=== PATIENT | male | born 1980 | race Caucasian/White ===

== ENCOUNTER 2020-01-19 08:39 | Day surgery (SDC) | payer SELFPAY ==
[2020-01-18 15:14] VITALS: BMI 23.7
[2020-01-19] VITALS (11 sets, daily range): BP systolic 125–148; BP diastolic 73–93; PULSE 62–79; RESP 12–21; TEMP 36.2–36.7; O2SAT 97–100
--- NOTE | 2020-01-19 | SCC_ITS ---
Procedure Done: Open reduction internal fixation left lateral malleolus 20.6 seconds of fluoroscopic guidance, for a cumulative dose of 0.38 mGy, was provided to Dr. Velez by the radiology department. C-arm images of the LEFT ankle were saved for the patient's permanent record. [facility]
[2020-01-19] MEDS: sodium chloride 0.9% 1,000 ML 30 ML IV (09:19)
--- NOTE | 2020-01-19 09:24 | ANES.PREANE2 ---
Pre-Anesthetic Assessment Pre-Anesthetic Assessment: Height/Weight: Height 1.85 m Weight 81.647 kg Temp Pulse Resp BP Pulse Ox 98.0 F 72 18 148/85 98 01/19/20 09:01 01/19/20 09:01 01/19/20 09:01 01/19/20 09:01 01/19/20 09:01 Preop Diagnosis: Left bimalleolar ankle fracture Proposed Procedure: Operation Date: 01/19/20 10:40 Proposed Procedures p ORIF Ankle Bimalleolar fracture 05396 S82.842A(Left) - Jaylen Velez MD Familial anesthetic complications: NOne Was Beta Humza taken within 24 hours: N/A Last intake: Intake Last Liquid Date 01/18/20 Last Liquid Time 23:00 Last Solid Date 01/18/20 Last Solid Time 23:00 Social: Social History: Tobacco and No alcohol Packs per day: 0.5 ppd Exam: Pre-Anes Outpt Exam: alert, oriented x 3, clear to auscultation bilaterally and regular rate & rhythm Airway: Cervical ROM: WNL MP: 3 Dentition: Chipped Additional comments: poor dentition Pulmonary: Pulmonary: None reported CV/HEM: CV/HEM: None reported : : None reported Hepatic: Hepatic: None reported GI: GI: None reported Metabolic: Metabolic: None reported Musc/skel: Musc/skel: None reported Anesthetic Plan: ASA status: 2 Anesthesia: General and Regional (specify below) Risk of > 500 ml blood loss (7ml/kg in children): No Meds/Allergies Current Medications: Current Medications Generic Name Dose Route Start Last Admin Trade Name Freq PRN Reason Stop Dose Admin Sodium Chloride 1,000 mls @ 30 ml s/hr 01/19/20 09:00 01/19/20 09:19 Sodium Chloride 0.9% IV 01/20/20 08:59 30 mls/hr .Q24H NATI Administration PFSH Anesthesia PFSH: Social History Smoking and tobacco status: current every day smoker Alcohol intake: never Data Anesthesia Cardiac Studies: No Data to Display
[2020-01-19] MEDS: midazolam 1 mg/mL INJ 2 mL 2 MG IVP (09:34)
[2020-01-19] MEDS: fentaNYL 50 mcg/mL INJ 2mL 100 MCG IVP (09:36)
--- NOTE | 2020-01-19 10:25 | ANES.PROC ---
Anesthesia Procedures Procedure/Date: 01/19/20 Nerve Block ^: Nerve Block 1: Main Anesthesia: general anesthesia Time Out Performed: Yes Consent: requested by attending/covering physician, from patient, risks and benefits reviewed and patient agrees to proceed Nerve block location: popliteal (L) Anesthesia monitors applied: pulse oximetry, BP cuff and oxygen Nerve block position: semi sitting Anesthetic Used: ropivicaine 0.5% and with decadron (3) Amount of anesthesia used (mL): 30 Ultrasound used to: recognize landmarks Nerve Stimulator Used?: No Interscalene/Femoral BLK: 4 stimuplex 21 g needle used for position and inplane approach and visualize local anesthetic spread Injection: neg aspiration of heme and paresthesia +/- Patient Tolerated Procedure: no complications Complications: none Nerve Block 2: Main Anesthesia: general anesthesia Time Out Performed: Yes Consent: requested by attending/covering physician, from patient, risks and benefits reviewed and patient agrees to proceed Nerve block location: adductor canal (L) Anesthesia monitors applied: pulse oximetry, BP cuff and oxygen Nerve block position: supine Anesthetic Used: ropivicaine 0.5% and with decadron (1 mg) Amount of anesthesia used (mL): 10 Ultrasound used to: recognize landmarks Interscalene/Femoral BLK: 4 stimuplex 21 g needle used for position and inplane approach, visualize local anesthetic spread and no vascular puncture identified Injection: neg aspiration of heme Patient Tolerated Procedure: well Complications: none
--- NOTE | 2020-01-19 11:13 | XR_ITS ---
WS: [id number] C-ARM RADIOGRAPHS LEFT ANKLE; 3 IMAGES HISTORY: OR PICS COMPARISON: 01/15/2020 Intraoperative fixation distal fibular fracture. Fracture in good position and alignment. XR/XR ankle LT 2V [id number] IMPRESSION: Intraoperative fixation distal fibular fracture in good alignment.
--- NOTE | 2020-01-19 11:18 | SUR.PHASEI ---
1117 PATIENT TO PACU AT THIS TIME FROM OR. RR EVEN AND UNLABORED. 100% ON RA. DRESSING TO LEFT ANKLE WITH WALKING BOOT IN PLACE. CAP REFILL INTACT TO LEFT TOES.
--- NOTE | 2020-01-19 11:18 | PM.OP ---
Operative Report Date of procedure: January 19, 2020 Pre-op Diagnosis: Left bimalleolar ankle fracture Post-op diagnosis: same Post-op Findings: The patient had the previously described displaced spiral fracture of the left lateral malleolus and a small posterior malleolar fracture Procedure Done: Open reduction internal fixation left lateral malleolus Implants: Variax distal tibial plate Pathology: none sent Surgeon: Jaylen Velez Anesthesia: General Estimated blood loss (mL): 10 Tourniquet time (min): 36 Complications: None Findings: The patient had the previously described displaced spiral fracture of the left lateral malleolus and a small posterior malleolar fracture Disposition: PACU Brief History: The patient sustained a lateral and posterior malleolar fracture when he slipped in mud with a displacement of the fibula and equivocal widening of the medial tibiotalar clear space. Open reduction internal fixation was chosen to better align the talus in the mortise and minimize risk of a future pain and degenerative change Procedure: The patient was taken to the operating room after he was given a popliteal and abductor canal block and given a general anesthesia, he was given 2 g of Ancef and a general anesthesia. He was prepped and draped in the supine position with a tourniquet on the left thigh. A timeout was performed. A 6 cm long decision was made beginning from the tip of the lateral malleolus proximally. Dissection was carried down full-thickness through to the distal fibula. The periosteum was elevated laterally and the fracture mobilized with a [place]. Reduction clamp was used to bring the distal fibular fragment out to length and I reduced it. The bariatrics plate was placed over the distal fibula. It was fixed with provisionally with 1 nonlocking screw in the proximal plate and a additional nonlocking screw and the distal plate providing compression of the plate against the bone. Additional locking screws were placed distally and a mixture of locking and nonlocking screws approximately stabilizing the plate to bone. Intraoperative images were obtained showing satisfactory position of the hardware. The wound was irrigated with saline. Deep tissues were closed with 2-0 Vicryl. The skin was closed with skin jolie. Sterile dressings were applied. Radiographs showed alignment of the talus in the mortise. The posterior malleolar fragment was not seen to be displaced. Talus was a stable to lateral displacing force in the mortise. Patient was placed in a postop boot, extubated, and taken recovery room in stable condition.
--- NOTE | 2020-01-19 11:45 | SUR.PHASEI ---
1141 PATIENT TO OPS AT THIS TIME. PAIN 6/10, WANTING A PAIN PILL SO HE CAN GO HOME. BOOT IN PLACE TO LEFT ANKLE, TOLERATING WELL.
[2020-01-19] MEDS: oxyCODONE 5 mg IR Tab/Cap PO (12:00)
--- NOTE | 2020-01-19 17:40 | PC.SOCIAL ---
followed up with mother after receiving order for crutches to ensure these were obtained. Mother indicates he has crutches and a walker no further needs
== END 2020-01-19 12:57 | disposition home or self-care (01) ==
PROVIDERS: Visit Provider Orthopaedic Surgery
PROC: (CPT 27792; principal; 2020-01-19 10:20)
DX: S82.842A Displaced bimalleolar fracture of left lower leg, initial encounter for closed fracture (principal); X50.1XXA Overexertion from prolonged static or awkward postures, initial encounter; F17.210 Nicotine dependence, cigarettes, uncomplicated
CPT/HCPCS: 27792; 12345; 73600; 76000; 96374; C1713; J0690; J1100; J1580; J2250; J2405; J2704; J2795; J3010; J3490; J7030

== ENCOUNTER 2020-04-27 12:14 | Emergency (ER) | payer SELFPAY ==
[2020-04-27] VITALS (11 sets, daily range): BP systolic 115–157; BP diastolic 70–89; PULSE 82–120; RESP 16–20; TEMP 37.1; O2SAT 95–97; BMI 25.0
[2020-04-27] MEDS: acetaminophen 500 mg Tablet 1000 MG PO (13:12)
[2020-04-27] MEDS: ondansetron 2 mg/ML SDV 2 mL 4 MG IVP (13:13)
[2020-04-27] MEDS: sodium chloride 0.9% 1,000 ML 999 ML IV ×2 (13:13→16:06)
[2020-04-27] MEDS: HYDROmorphone 1 mg/mL INJ 1 mL 0.5 MG IVP (13:13)
--- NOTE | 2020-04-27 13:28 | CTR_ITS ---
PROCEDURE INFORMATION: Exam: CT Right Lower Extremity With Contrast; Thigh Exam date and time: 04/27/2020 1:36 PM Age: 39 years old Clinical indication: Hip and thigh; Patient HX: Pain/redness and swelling to right lateral hip/femur area with no previous trauma or injury; Additional info: Swelling, redness, pain right lateral proximal femur TECHNIQUE: Imaging protocol: CT of the Right lower extremity with intravenous contrast was performed. Exam focused on the thigh. Radiation optimization: All CT scans at this facility use at least one of these dose optimization techniques: automated exposure control; mA and/or kV adjustment per patient size (includes targeted exams where dose is matched to clinical indication); or iterative reconstruction. Contrast material: OMNIPAQUE 300; Contrast volume: 95 ml; Contrast route: INTRAVENOUS (IV); COMPARISON: No relevant prior studies available. RADIATION DOSE METRICS: Total DLP (mGy-cm): 1261.12 FINDINGS: Bones/joints: Normal. No acute fracture or dislocation. Soft tissues: There is peripherally enhancing fluid with minimal internal complexity surrounding at the anterior, lateral, and posterolateral musculature of the right hip and thigh extending along the fascial planes. There is fluid stranding in the overlying subcutaneous soft tissues. The right gluteus medius muscle is enlarged and heterogeneous. CT/CT femur RT w con [id number] IMPRESSION: 1. The right gluteus medius muscle is enlarged and heterogeneous. Differential includes myositis, infection, and contusion. 2. There is peripherally enhancing fluid with some internal complexity surrounding the anterior, lateral, and posterolateral musculature of the right hip and thigh extending into the fascial planes. Differential includes infection/abscess and hematoma. Radiation Dose CTDIVOL = (mGy): DLP = 1261.12 (mGy-cm)
[2020-04-27 13:34] LABS: Basophils # 0.1 10^3/uL (0.0-0.1); Basophils % 0.4 %; Hematocrit 38.7 % (42.0-52.0); Hemoglobin 12.7 g/dL (11.7-16.6); Lymphocytes # 0.4 10^3/uL (0.8-4.8); Lymphocytes % 2.5 %; Mean Corpuscular HGB Conc 32.8 g/dL (30.0-36.0); Mean Corpuscular Hemoglobin 28.3 pg (28.0-34.0); Mean Corpuscular Volume 86.4 fL (80-94); Mean Platelet Volume 11.4 fL (7.4-10.4); Monocytes % 12.4 %; Neutrophils # 13.42 10^3/uL (1.8-7.7); Neutrophils % 84.1 %; Nucleated Red Blood Cells % 0 %; Platelet Count 257 10^3/cmm (130-400); Red Blood Count 4.48 10^6/uL (4.1-5.3); Red Cell Distribution Width 13.2 % (12.1-15.1)
[2020-04-27] MEDS: iohexol 300 mg/mL 100 mL Btl IV (13:54)
[2020-04-27 14:01] LABS: Procalcitonin 8.27 ng/mL (0-0.5)
[2020-04-27] MEDS: ketorolac 30 mg/mL INJ 15 MG IVP (14:01)
--- NOTE | 2020-04-27 14:04 | ED_ITS ---
HPI - General Adult General: Chief complaint: General Medical Stated complaint: infection/sent by doctor Time Seen by Provider: 04/27/20 12:29 History of Present Illness: HPI narrative: This patient is a 39-year-old male presents today with an infection in his right leg. He started having pain in his right hip area and buttock about 4 days ago. He has been seen in [facility] a few times for this and initially was thought to have a pinched nerve in his back causing the pain. He has since developed redness and swelling over the right hip and buttock. He was sent here today for evaluation for sepsis and infection. He has been on Bactrim for a couple of days but the symptoms are getting worse. He was sent today but no paperwork or imaging was sent with him. I did obtain records from [facility] and he did have a CT done on the of the abdomen and pelvis. This showed some splenomegaly and enlarged retroperitoneal lymph nodes but the hip joints were noted as normal. He had labs done on the as well as yesterday. The labs from yesterday show a white count of 16.4, CO2 of 18 and a glucose of 192. He also had elevated alk phos at 220. Labs from today are ordered as well. He denied drug use but has fresh track bailey and did eventually admit to IV drug use including Dilaudid. He denies vomiting or fever. He has had chills. He feels terrible. Onset (ago): day(s) (4) Location: right and lower extremity Severity: severe Quality: stabbing and sharp Pain Consistency: constant Relieving factors: none Exacerbating factors: movement Associated symptoms: Reports diaphoresis, fevers/chills and malaise; Deny chest pain Review of Systems General: Reports: 10 or more systems reviewed and unremarkable except in HPI and below Const: Reports: malaise and diaphoresis Card: Denies: chest pain Musc: Reports: extremity pain and extremity swelling Skin/Breast: Reports: erythema, skin pain, skin tenderness and skin swelling PFS ED PFSH: Social History Smoking and tobacco status: current every day smoker Alcohol intake: never Physical Exam Const: COMMON NORMALS: no acute distress, patient oriented x3, no limitations and alert GENERAL APPEARANCE: cooperative and comfortable HENMT: HEAD & SCALP: normal to inspection FACE & SINUS: normal facial exam Eye: GENERAL EYE: appearance normal, both eyes and all related structures Neck/C-Spine: COMMON NORMALS: supple, no meningeal signs and no JVD Chest: COMMONS NORMALS: normal inspection of the chest Resp: COMMON NORMALS: normal respiratory effort, No use of accessory muscles and clear to auscultation bilaterally EFFORT & INSPECTION: Yes tachypneic AUSCULTATION: clear to auscultation bilaterally Cardio: COMMON NORMALS: no JVD, regular rhythm and No murmurs present (Cardio) RATE: tachycardic RHYTHM: regular rhythm GI: COMMON NORMALS: Normal to inspection, nondistended, normoactive bowel sounds present, Soft to palpation and non-tender INSPECTION: Yes normal to inspection AUSCULTATION: Yes normoactive bowel sounds PALPATION: Yes Soft to palpation Back/Pelvis: COMMON NORMALS: thoracic and lumbar spine normal to inspection Extremity: GENERAL: Yes normal exam except as noted RIGHT LOWER EXTREMITY: Yes upper leg (Large area of redness, swelling, tenderness over the lateral aspect of the proximal thigh and extending slightly onto the buttock. This is in the general area of the hip joint but not directly over it. Severe pain with movement or palpation) Neuro: COMMON NORMALS: patient oriented x3, moves all extremities, no focal motor deficits and no sensory deficits noted SENSORIUM/ORIENTATION: Yes alert MENINGEAL SIGNS: Yes no meningeal signs Psych: COMMON NORMALS: mental status grossly normal, cooperative and normal affect Skin: COMMON NORMALS: no rashes or lesions noted and turgor normal GENERAL SKIN EXAM: no rashes or lesions noted and turgor normal Course ED course: I spoke with Dr. Whitney, general surgery at [facility]. She would like the patient to come through the ED however the ED is on forced open and not taking transfers. She then felt to be appropriate for the hospitalist to admit and she will consult as orthopedics might be involved as well as infectious disease and other medical specialties. The transfer center will call me back with an accepting hospitalist. Also concerned about bed availability given the status of their ER. [facility] called back and said that their hospitalist would not take the patient. They felt like the patient would need either ICU or to go to the ER in both of those areas are closed. Thus, I called [facility] and they said they did have ICU beds so Dr. Ovalle called me back but did not feel that the patient was appropriate for ICU level care. She said she was available if the patient went to stepdown and then worsened. I am now waiting for the hospitalist to call me back to see if they can accept him to a stepdown bed. The patient has been accepted to the ER at [facility] by Dr. Whiting. EMS is here to transport him. Vital signs are still stable. Blood pressure is 133/73. His pain is adequately controlled. Consultations: Consultation #1: The radiologist called with the CT findings. He has significant complex fluid around the anterior lateral and posterior lateral muscle groups in the hip and thigh. There is no evidence of involvement of the joint. There is enlargement of the gluteus medius muscle on the right with some heterogeneity. The fluid extends into the fascial planes. Asked the radiologist if she thought it might be necrotizing fasciitis and her answer was not yet . Time: 14:40 Consultation #2: Spoke with Dr. Ferreira regarding the patient. We reviewed the CT together. He would like to get an MRI with contrast because is not clear if this is infectious, involving the hip joint or myositis. He recommended vancomycin and Zosyn which have already been started. The patient CK is elevated over 5000. MRI is ordered and will have to call the tech from home. 15:10 Consultation #3: Dr. Andrew called back and said he had done some further research and reviewed the CT again and is concerned about necrotizing myositis. He feels that because it is in a deep muscle that orthopedics should be involved. I called and spoke to Dr. Magaña who will review the CT and call me back. Time: 15:43 Additional Consultation(s): Dr. Magaña called back and said he felt like the patient should be transferred out to higher level of care due to the possibility of necrotizing infection. The patient had no preference as to where he goes and I am trying [facility] first. Vital Signs: Vital signs: Vital Signs Temperature 98.7 F 04/27/20 12:24 Pulse Rate 84 04/27/20 21:31 Respiratory Rate 16 04/27/20 21:31 Blood Pressure 133/73 04/27/20 21:31 Pulse Oximetry 96 04/27/20 21:31 MDM - General Adult MDM Narrative: Medical decision making narrative: Cellulitis, septic joint, necrotizing fasciitis or the top and most concerning differential diagnoses. Zosyn, vancomycin. Pain control. Fluids. Surgical consult. Lab Data: Labs: Lab Results 04/27/20 04/27/20 04/27/20 Range/Units 13:17 13:17 13:17 WBC 16.0 H (4.0-10.0) 10^3/ uL RBC 4.48 (4.1-5.3) 10^6/u L Hgb 12.7 (11.7-16.6) g/dL Hct 38.7 L (42.0-52.0) % MCV 86.4 (80-94) fL MCH 28.3 (28.0-34.0) pg MCHC 32.8 (30.0-36.0) g/dL RDW 13.2 (12.1-15.1) % Plt Count 257 (130-400) 10^3/c mm MPV 11.4 H (7.4-10.4) fL Neut % (Auto) 84.1 % Lymph % (Auto) 2.5 % [place] % (Auto) 12.4 % Eos % (Auto) 0.0 % Baso % (Auto) 0.4 % Neut # (Auto) 13.42 H (1.8-7.7) 10^3/u L Lymph # (Auto) 0.4 L (0.8-4.8) 10^3/u L [place] # (Auto) 2.0 H (0.2-0.9) 10^3/u L Eos # (Auto) 0.0 (0.0-0.8) 10^3/u L Baso # (Auto) 0.1 (0.0-0.1) 10^3/u L Nucleated RBC % (a uto) 0 % Nucleated RBCs # 0.0 /100WBC ESR 95 H (0-10) mm/hr PT 13.50 H (10.5-13.3) SECO NDS INR 1.00 (0.8-1.2) Sodium (136-145) mmol/L Potassium (3.5-5.1) mmol/L Chloride (98-107) mmol/L Carbon Dioxide (22-29) mmol/L Anion Gap (5-19) BUN (6-20) mg/dL Creatinine (0.7-1.2) mg/dL GFR Calculation (90-130) mL/min Glucose (65-115) mg/dL Calculated Osmolal ity (285-295) mOsm/k g Lactic Acid Lactate Calcium (8.5-10.5) mg/dL Total Bilirubin (0.15-1.2) mg/dL AST (0-40) U/L ALT (0-41) U/L Alkaline Phosphata se (40-130) IU/L Creatine Kinase (39-308) U/L Total Protein (6.6-8.7) g/dL Albumin (3.5-5.2) g/dL Globulin (1.3-4.6) g/dL Procalcitonin (0-0.5) ng/mL Urine Color (Yellow) Urine Appearance (CLEAR) Urine pH (5-7) Ur Specific Gravit y (1.005-1.030) Urine Protein (Negative) Urine Glucose (UA) (Normal) Urine Ketones (Negative) Urine Blood (Negative) Urine Nitrate (Negative) Urine Bilirubin (NEGATIVE) Urine Urobilinogen (Negative) mg/dL Ur Leukocyte [place] (Negative) Urine RBC (0-2) /hpf Urine WBC (0-5) /hpf Ur Squamous Epith Cells (0-5) Amorphous Sediment Urine Bacteria (NONE) Coarse Granular Ca sts /lpf Urine Mucus Urine Yeast Urine Opiates Scre en (Negative) ng/mL Ur Barbiturates Sc reen (Negative) ng/mL Ur Phencyclidine S crn (Negative) ng/mL Ur Amphetamines Sc reen (Negative) ng/mL U Benzodiazepines Scrn (Negative) ng/mL Urine Cocaine Scre en (Negative) ng/mL U Marijuana (THC) Screen (Negative) ng/mL Blood Type Rho(D) Type Antibody Screen 04/27/20 04/27/20 04/27/20 Range/Units 13:17 13:17 13:17 WBC (4.0-10.0) 10^3/ uL RBC (4.1-5.3) 10^6/u L Hgb (11.7-16.6) g/dL Hct (42.0-52.0) % MCV (80-94) fL MCH (28.0-34.0) pg MCHC (30.0-36.0) g/dL RDW (12.1-15.1) % Plt Count (130-400) 10^3/c mm MPV (7.4-10.4) fL Neut % (Auto) % Lymph % (Auto) % [place] % (Auto) % Eos % (Auto) % Baso % (Auto) % Neut # (Auto) (1.8-7.7) 10^3/u L Lymph # (Auto) (0.8-4.8) 10^3/u L [place] # (Auto) (0.2-0.9) 10^3/u L Eos # (Auto) (0.0-0.8) 10^3/u L Baso # (Auto) (0.0-0.1) 10^3/u L Nucleated RBC % (a uto) % Nucleated RBCs # /100WBC ESR (0-10) mm/hr PT (10.5-13.3) SECO NDS INR (0.8-1.2) Sodium 121 L (136-145) mmol/L Potassium 4.4 (3.5-5.1) mmol/L Chloride 86 L (98-107) mmol/L Carbon Dioxide 20 L (22-29) mmol/L Anion Gap 19.4 H (5-19) BUN 22 H (6-20) mg/dL Creatinine 1.3 H (0.7-1.2) mg/dL GFR Calculation 61.8 L (90-130) mL/min Glucose 224 H (65-115) mg/dL Calculated Osmolal ity 256 L (285-295) mOsm/k g Lactic Acid Lactate Cancelled Calcium 8.4 L (8.5-10.5) mg/dL Total Bilirubin 1.8 H (0.15-1.2) mg/dL AST 175 H (0-40) U/L ALT 86 H (0-41) U/L Alkaline Phosphata se 183 H (40-130) IU/L Creatine Kinase 5245 H* (39-308) U/L Total Protein 7.5 (6.6-8.7) g/dL Albumin 3.2 L (3.5-5.2) g/dL Globulin 4.3 (1.3-4.6) g/dL Procalcitonin 8.27 H (0-0.5) ng/mL Urine Color (Yellow) Urine Appearance (CLEAR) Urine pH (5-7) Ur Specific Gravit y (1.005-1.030) Urine Protein (Negative) Urine Glucose (UA) (Normal) Urine Ketones (Negative) Urine Blood (Negative) Urine Nitrate (Negative) Urine Bilirubin (NEGATIVE) Urine Urobilinogen (Negative) mg/dL Ur Leukocyte [place] (Negative) Urine RBC (0-2) /hpf Urine WBC (0-5) /hpf Ur Squamous Epith Cells (0-5) Amorphous Sediment Urine Bacteria (NONE) Coarse Granular Ca sts /lpf Urine Mucus Urine Yeast Urine Opiates Scre en (Negative) ng/mL Ur Barbiturates Sc reen (Negative) ng/mL Ur Phencyclidine S crn (Negative) ng/mL Ur Amphetamines Sc reen (Negative) ng/mL U Benzodiazepines Scrn (Negative) ng/mL Urine Cocaine Scre en (Negative) ng/mL U Marijuana (THC) Screen (Negative) ng/mL Blood Type A Negative Rho(D) Type Negative Antibody Screen Negative 04/27/20 04/27/20 04/27/20 Range/Units 14:05 14:05 14:09 WBC (4.0-10.0) 10^3/ uL RBC (4.1-5.3) 10^6/u L Hgb (11.7-16.6) g/dL Hct (42.0-52.0) % MCV (80-94) fL MCH (28.0-34.0) pg MCHC (30.0-36.0) g/dL RDW (12.1-15.1) % Plt Count (130-400) 10^3/c mm MPV (7.4-10.4) fL Neut % (Auto) % Lymph % (Auto) % [place] % (Auto) % Eos % (Auto) % Baso % (Auto) % Neut # (Auto) (1.8-7.7) 10^3/u L Lymph # (Auto) (0.8-4.8) 10^3/u L [place] # (Auto) (0.2-0.9) 10^3/u L Eos # (Auto) (0.0-0.8) 10^3/u L Baso # (Auto) (0.0-0.1) 10^3/u L Nucleated RBC % (a uto) % Nucleated RBCs # /100WBC ESR (0-10) mm/hr PT (10.5-13.3) SECO NDS INR (0.8-1.2) Sodium (136-145) mmol/L Potassium (3.5-5.1) mmol/L Chloride (98-107) mmol/L Carbon Dioxide (22-29) mmol/L Anion Gap (5-19) BUN (6-20) mg/dL Creatinine (0.7-1.2) mg/dL GFR Calculation (90-130) mL/min Glucose (65-115) mg/dL Calculated Osmolal ity (285-295) mOsm/k g Lactic Acid Cancelled Lactate Calcium (8.5-10.5) mg/dL Total Bilirubin (0.15-1.2) mg/dL AST (0-40) U/L ALT (0-41) U/L Alkaline Phosphata se (40-130) IU/L Creatine Kinase (39-308) U/L Total Protein (6.6-8.7) g/dL Albumin (3.5-5.2) g/dL Globulin (1.3-4.6) g/dL Procalcitonin (0-0.5) ng/mL Urine Color [place] (Yellow) Urine Appearance Sl hazy (CLEAR) Urine pH 5 (5-7) Ur Specific Gravit y 1.020 (1.005-1.030) Urine Protein 1+ H (Negative) Urine Glucose (UA) 2+ (Normal) Urine Ketones Negative (Negative) Urine Blood 3+ H (Negative) Urine Nitrate Negative (Negative) Urine Bilirubin 1+ H (NEGATIVE) Urine Urobilinogen 1 H (Negative) mg/dL Ur Leukocyte [place] Negative (Negative) Urine RBC 0-4 H (0-2) /hpf Urine WBC 0-4 H (0-5) /hpf Ur Squamous Epith Cells None (0-5) Amorphous Sediment Trace Urine Bacteria 2+ H (NONE) Coarse Granular Ca sts 10-15 H /lpf Urine Mucus 1+ Urine Yeast 1+ H Urine Opiates Scre en Positive H (Negative) ng/mL Ur Barbiturates Sc reen Negative (Negative) ng/mL Ur Phencyclidine S crn Negative (Negative) ng/mL Ur Amphetamines Sc reen Positive H (Negative) ng/mL U Benzodiazepines Scrn Negative (Negative) ng/mL Urine Cocaine Scre en Negative (Negative) ng/mL U Marijuana (THC) Screen Negative (Negative) ng/mL Blood Type Rho(D) Type Antibody Screen 04/27/20 04/27/20 Range/Units 15:00 15:29 WBC (4.0-10.0) 10^3/ uL RBC (4.1-5.3) 10^6/u L Hgb (11.7-16.6) g/dL Hct (42.0-52.0) % MCV (80-94) fL MCH (28.0-34.0) pg MCHC (30.0-36.0) g/dL RDW (12.1-15.1) % Plt Count (130-400) 10^3/c mm MPV (7.4-10.4) fL Neut % (Auto) % Lymph % (Auto) % [place] % (Auto) % Eos % (Auto) % Baso % (Auto) % Neut # (Auto) (1.8-7.7) 10^3/u L Lymph # (Auto) (0.8-4.8) 10^3/u L [place] # (Auto) (0.2-0.9) 10^3/u L Eos # (Auto) (0.0-0.8) 10^3/u L Baso # (Auto) (0.0-0.1) 10^3/u L Nucleated RBC % (a uto) % Nucleated RBCs # /100WBC ESR (0-10) mm/hr PT (10.5-13.3) SECO NDS INR (0.8-1.2) Sodium (136-145) mmol/L Potassium (3.5-5.1) mmol/L Chloride (98-107) mmol/L Carbon Dioxide (22-29) mmol/L Anion Gap (5-19) BUN (6-20) mg/dL Creatinine (0.7-1.2) mg/dL GFR Calculation (90-130) mL/min Glucose (65-115) mg/dL Calculated Osmolal ity (285-295) mOsm/k g Lactic Acid Cancelled 1.5 Lactate Calcium (8.5-10.5) mg/dL Total Bilirubin (0.15-1.2) mg/dL AST (0-40) U/L ALT (0-41) U/L Alkaline Phosphata se (40-130) IU/L Creatine Kinase (39-308) U/L Total Protein (6.6-8.7) g/dL Albumin (3.5-5.2) g/dL Globulin (1.3-4.6) g/dL Procalcitonin (0-0.5) ng/mL Urine Color (Yellow) Urine Appearance (CLEAR) Urine pH (5-7) Ur Specific Gravit y (1.005-1.030) Urine Protein (Negative) Urine Glucose (UA) (Normal) Urine Ketones (Negative) Urine Blood (Negative) Urine Nitrate (Negative) Urine Bilirubin (NEGATIVE) Urine Urobilinogen (Negative) mg/dL Ur Leukocyte [place] (Negative) Urine RBC (0-2) /hpf Urine WBC (0-5) /hpf Ur Squamous Epith Cells (0-5) Amorphous Sediment Urine Bacteria (NONE) Coarse Granular Ca sts /lpf Urine Mucus Urine Yeast Urine Opiates Scre en (Negative) ng/mL Ur Barbiturates Sc reen (Negative) ng/mL Ur Phencyclidine S crn (Negative) ng/mL Ur Amphetamines Sc reen (Negative) ng/mL U Benzodiazepines Scrn (Negative) ng/mL Urine Cocaine Scre en (Negative) ng/mL U Marijuana (THC) Screen (Negative) ng/mL Blood Type Rho(D) Type Antibody Screen Discharge Plan Discharge Prescriptions: No Action Bactrim DS 800-160 mg Tablet 1 tab PO BID RF: 0 gabapentin 100 mg Capsule 100 mg PO DAILY RF: 0 Referrals: Arun Moreno [Primary Care Provider] - Discharge Date/Time: 04/27/20 21:32 Coding Level of Care Code ED Stem Cutter for Chg Fwd Exam Comprehensive
[2020-04-27 14:12] LABS: Alanine Aminotransferase 86 U/L (0-41); Albumin Level 3.2 g/dL (3.5-5.2); Alkaline Phosphatase 183 IU/L (40-130); Anion Gap 19.4 (5-19); Aspartate Amino Transferase 175 U/L (0-40); Blood Urea Nitrogen 22 mg/dL (6-20); Calcium 8.4 mg/dL (8.5-10.5); Carbon Dioxide 20 mmol/L (22-29); Chloride 86 mmol/L (98-107); Globulin 4.3 g/dL (1.3-4.6); Glomerular Filtration Rate 61.8 mL/min (90-130); Glucose 224 mg/dL (65-115); Osmolality Calculated 256 mOsm/kg (285-295); Potassium 4.4 mmol/L (3.5-5.1); Sodium 121 mmol/L (136-145); Total Bilirubin 1.8 mg/dL (0.15-1.2); Total Protein 7.5 g/dL (6.6-8.7)
[2020-04-27 14:25] LABS: Erythrocyte Sedimentation Rate 95 mm/hr (0-10)
[2020-04-27 15:01] LABS: Add Urine Microscopic? YES; Bilirubin Urine 1+ (NEGATIVE); Blood Urine 3+ (Negative); Glucose Urine UA 2+ (Normal); Ketones Urine Negative (Negative); Leukocyte Esterase Urine Negative (Negative); Nitrate Urine Negative (Negative); Protein Urine 1+ (Negative); Urine Appearance SL Hazy (CLEAR); Urine Color Amber (Yellow); Urobilinogen Urine 1 mg/dL (Negative); pH Urine 5 (5-7)
[2020-04-27 15:01] LABS: Creatine Phosphokinase 5245 U/L (39-308)
[2020-04-27 15:09] LABS: Amorphous Sediment Urine TRACE; Amphetamines Screen Urine Positive (Negative); Bacteria Urine 2+; Barbiturates Screen Urine Negative (Negative); Benzodiazepines Screen Urine Negative (Negative); Cocaine Screen Urine Negative (Negative); Mucus Urine 1+; Opiate Screen Urine Positive (Negative); PCP Screen Urine Negative (Negative); RBC Urine 0-4 /hpf (0-2); THC Screen Urine Negative (Negative); WBC Urine 0-4 /hpf (0-5)
[2020-04-27 15:10] LABS: Add Urine Culture? Yes
[2020-04-27] MEDS: piperacillin-tazobactam 4.5 GM in sodium chloride 0.9% (plus) 50 ML IV (15:35)
[2020-04-27 15:51] LABS: Lactic Sepsis W/Reflex 1.5 mmol/L (0.5-2.2)
--- NOTE | 2020-04-27 21:31 | PC.NURSE ---
Ems here for transfer, report given to ems crew. Patient left in stable condition in care of ems.
== END 2020-04-27 21:32 ==
LOC: ER 12:51
PROVIDERS: Emergency Provider Emergency Medicine; PCP Family Medicine
DX: M79.604 Pain in right leg (principal); F17.210 Nicotine dependence, cigarettes, uncomplicated
CPT/HCPCS: 12345; 36415; 73701; 80053; 80306; 81001; 81003; 82550; 83605; 84145; 85025; 85610; 85651; 86850; 86900; 87040; 87077; 87086; 87186; 87205; 96360; 96361; 96365; 96367; 96375; 99284; 99285; J1170; J1885; J2405; J2543; J3370; J7030; J7050; Q9967